=== PATIENT | male | born 1995 | race Caucasian/White ===

== ENCOUNTER 2022-01-15 19:28 | Emergency (ER) | payer OTHER ==
[~2022-01-15] VITALS: Ht 180.3 cm; Wt 109.0 kg
[2022-01-15] MEDS ORDERED: ACETAMINOPHEN WITH CODEINE 300/30MG TABLET PO ONE (20:00)
[2022-01-15] MEDS ORDERED: IBUPROFEN 800MG TABLET PO ONE (20:00)
[2022-01-15] MEDS ORDERED: T3 PO (20:33)
[2022-01-15] MEDS ORDERED: IBUP-2028 PO (20:33)
[2022-01-15 20:47] VITALS: BP 108/88
== END 2022-01-15 20:47 | disposition home or self-care (01) ==
LOC: ER 19:28
DX: M54.59 Other low back pain (principal); R20.0 Anesthesia of skin; R03.0 Elevated blood-pressure reading, without diagnosis of hypertension
CPT/HCPCS: 72100; 99283